=== PATIENT | female | born 1980 | race Caucasian/White ===

== ENCOUNTER → 2016-10-07 | Outpatient (CLI) | payer BC ==
[~2016-10-07] VITALS: Ht 177.8 cm; Wt 78.5 kg
[~2016-10-07] MED LIST: ALEVE220 M1 PO; AUGMENTIN 875875 MG PO; CAMILA0.35 MG; CLONAZEPAM 0.50.5 M1 PO; FLEXERIL PO; IBUPROFEN 600600 M1 PO; NAPROSYN375 MG PO; NORCO 5-325 TA1 EACH PO; PRENATAL VITAMIN; SYNTHROID50 MCG PO; TRAMADOL 50 MG50 MG PO; ULTRAM 50MG TAB50 MG PO
--- NOTE | ~2016-10-07 | HPC ---
[facility] [address] [place] [address] PAIN MANAGEMENT CONSULTATION Name: RUBY LIZARRAGA Room #: REG [facility]ON [facility].#: [id number] Admission: 10/07/16 Attend Phys: Chetan Bell DO Discharge: Date of : 80 Report #: [id number] THIS REPORT FOR: //name// CC: Chetan Horn DATE OF SERVICE: 10/07/2016 DATE OF SERVICE: 10/07/2016 CHIEF COMPLAINT: Low back pain, left lower extremity pain and paresthesias. HISTORY OF PRESENT ILLNESS: As you know, the patient is an extremely pleasant 36-year-old female, who returns today in followup visit reporting a pain level of 3-4/10. States her pain is burning, aching, numbness, intermittent in the sensation, exacerbated with sitting, improves with medications and previous epidural injection. The patient received 75% improvement in overall pain which is ongoing with previous injection. She has followed up with Dr. Odell's office, who indicates that she should undergo the second in the series in hopes of improving pain and reducing the patient's weakness, drop foot on the left side and numbness and tingling. She returns today requesting the second in series of epidural injections to address ongoing low back pain, and left lower extremity pain with paresthesias. The patient denies new injury, new trauma that may have led to progression of symptoms. ALLERGIES: No known drug allergies. CURRENT MEDICATIONS: Ibuprofen, tramadol, levothyroxine. SOCIAL HISTORY: The patient denies tobacco, alcohol or IV or illicit drug use. She is working, not receiving workmen's compensation, unaccompanied today. PHYSICAL EXAMINATION: VITAL SIGNS: Blood pressure 117/71, pulse 85, respiratory rate 14, unlabored. The patient 99% on room air. Height 5 feet 10 inches tall, weighs 173 pounds, BMI calculated 24.8. GENERAL: Well-developed, well-nourished, well-hydrated 36-year-old female appearing stated age, placing current pain score 3-4/10. HEENT: Normocephalic, atraumatic. Pupils equal, round, reactive to light. Sclerae nonicteric without injection. EXTREMITIES: Show no clubbing, no cyanosis, no edema. MUSCULOSKELETAL: Seated straight leg raising positive on the left. Supine straight leg raising positive on the left. Teresita test negative. Modified Gaenslen's is positive for axial low back pain. [place] [address] PAIN MANAGEMENT CONSULTATION Name: RUBY LIZARRAGA Room #: REG [facility].#: [id number] Admission: 10/07/16 Attend Phys: Chetan Bell DO Discharge: Date of : 80 Report #: [id number] dorsiflexion of the left foot when compared to the right. ASSESSMENT: 1. Symptomatic lumbar radiculopathy. 2. Severe spinal stenosis of lumbar spine. 3. Displacement of lumbar intervertebral disk with radiculopathy. 4. Lumbosacral spondylosis with radiculopathy. 5. Lumbar degeneration. 6. Chronic intractable pain. PLAN: 1. The patient returns today in followup visit for epidural injection under fluoroscopic guidance. The patient was advised of the risks and benefits of a repeat injection. She states she understood and wished to proceed. This injection is being provided per the request of Dr. Odell's office to determine if further symptoms would be amenable to such procedures. She has been evaluated from our surgical option, but they are hopeful more conservative treatment will be effective. She has requested this injection, as had the nurse practitioner at Dr. Odell's office. I recommend that the patient undergo the procedure today. Review efficacy and followup visit in 1 month. 2. The patient will return to our clinic on an as needed basis. She is to start physical therapy starting today. I have requested that she delay this for at least 2 days, allowing the injection to become effective. After that, she can return to all activities of daily living assuming no pain; or interference of weakness. 3. We will see the patient back in followup visit in approximately 1 month. At that time, discuss the efficacy of today's second epidural injection and determine if a third would be necessary. PROCEDURE NOTE: DESCRIPTION OF PROCEDURE: L5-S1 left paramedian epidural steroid injection under fluoroscopic guidance. This is the second procedure of the second series that the patient is undergoing. After obtaining written consent, the patient was taken back to the fluoroscopy suite, placed in a prone position with pillow under the abdomen to decrease lumbar lordosis. The skin overlying the lumbosacral area was then prepped and draped in aseptic fashion. The L5-S1 vertebral interspace was then identified by AP fluoroscopy. The skin and subcutaneous tissue overlying the target site of injection was anesthetized with 3 mL 1% lidocaine. A 20-gauge 3-1/2 inch Tuohy needle was then advanced under fluoroscopic guidance towards the epidural space using a left paramedian approach. The epidural space [address] [address] PAIN MANAGEMENT CONSULTATION Name: RUBY LIZARRAGA Room #: REG MOON [facility]#: [id number] Admission: 10/07/16 Attend Phys: Chetan Bell DO Discharge: Date of : 80 Report #: [id number] was identified using loss of resistance to air technique. After negative aspiration for heme or cerebrospinal fluid, a total of 1 mL of Omnipaque was injected. A lumbar epidurogram was confirmed using both AP and lateral fluoroscopy. After negative aspiration for heme or cerebrospinal fluid, 5 mL of solution containing 2 mL 40 mg per mL 80 mg total triamcinolone, 3 mL of lidocaine 1% was injected in increments. Contrast spread was noted posterior epidural space. The needle was then retracted approximately half way and needle tract flushed with 1 mL of 1% lidocaine. Needle was then removed. There were no apparent sensory or motor deficits in the lower extremity following the procedure. A sterile bandage was placed over the injection site. The heart rate, pulse, oximetry and blood pressure were continuously monitored after the procedure. There were no apparent complications. The patient tolerated the procedure well and was carefully escorted to the recovery room in stable condition. There were no apparent complications. After meeting discharge criteria, the patient was then discharged home. <ELECTRONICALLY SIGNED> By: Chetan Bell DO 10/08/16 [id number] Chetan Bell DO /nt
[2016-10-07 08:38] VITALS: BP 117/71
== END ==
LOC: PAIN 07:12
DX: M47.27 Other spondylosis with radiculopathy, lumbosacral region (principal); M51.16 Intervertebral disc disorders with radiculopathy, lumbar region; M48.06 Spinal stenosis, lumbar region; G89.29 Other chronic pain

== ENCOUNTER → 2017-02-04 | Outpatient (CLI) | payer BC ==
[~2017-02-04] VITALS: Ht 177.8 cm; Wt 79.4 kg
[2017-02-04 09:58] VITALS: BP 111/67
== END | disposition home or self-care (01) ==
LOC: PAIN 06:50
DX: M48.06 Spinal stenosis, lumbar region (principal); M47.27 Other spondylosis with radiculopathy, lumbosacral region; G89.29 Other chronic pain; Z98.890 Other specified postprocedural states